=== PATIENT | female | born 1970 | race African-American/Black ===

== ENCOUNTER 2019-09-08 13:29 | Emergency (ER) | payer MEDICARE, MEDICAID ==
[~2019-09-08] VITALS: Ht 162.6 cm; Wt 86.5 kg
[~2019-09-08 13:29] MED LIST: ACET325T14 PO; ALBU8.5H8 INH; ARIP2TAB2 PO; FLUO10CA13 PO; HYDR-3240 PO; IRON1TAB60 PO; MELO7.5T5 PO; PRED1TAB19 PO; SIMV10TA18 PO; [UNRECOGNIZED DRUG - OTHER]
[2019-09-08 13:41] VITALS: BP 123/86
--- NOTE | 2019-09-08 15:23 | NUR ---
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
== END 2019-09-08 17:09 | disposition home or self-care (01) ==
LOC: ED 15:29
DX: G89.29 Other chronic pain (principal); M25.552 Pain in left hip; J34.89 Other specified disorders of nose and nasal sinuses; J45.909 Unspecified asthma, uncomplicated
CPT/HCPCS: 99281